=== PATIENT | female | born 1935 | race Two or more races ===

== ENCOUNTER 2017-12-12 17:55 | Emergency (ER) | payer MEDICARE, OTHER ==
[~2017-12-12] VITALS: Ht 152.4 cm; Wt 93.0 kg
[2017-12-12] MEDS ORDERED: TDAP [DIPH/PERTUSSIS/TET] 0.5 ML VIAL IM ONE ×2 (18:50→19:00)
[2017-12-12] MEDS ORDERED: ACETAMINOPHEN ES 500 MG TABLET ONE (18:50)
[2017-12-12] MEDS ORDERED: ACETAMINOPHEN ES 500 MG TABLET PO ONE (19:00)
--- NOTE | 2017-12-12 19:10 | NUR ---
RECIEVED REPORT FROM IV. PT JUST RETURNED FROM RADIOLOGY
--- NOTE | 2017-12-12 19:10 | NUR ---
MEGHANA at bedside w/Jose Guadalupe
--- NOTE | 2017-12-12 19:48 | NUR ---
PT RESTING COMFORTABLY IN BED. PT [id number]. PT PLACED ON MONITOR, VSS. FAMILY AT BEDSIDE
--- NOTE | 2017-12-12 20:45 | NUR ---
CALLED [facility] FOR REPORT
--- NOTE | 2017-12-12 20:58 | NUR ---
Patient discharged to home in stable condition. Written and verbal after care instructions given. Patient verbalizes understanding of instruction. Pt left with family members. Pt ambulatory with a steady gait
[2017-12-12 20:59] VITALS: BP 100/52
== END 2017-12-12 21:00 | disposition home or self-care (01) ==
LOC: ER 17:57
DX: S00.12XA Contusion of left eyelid and periocular area, initial encounter (principal); I10 Essential (primary) hypertension; E11.9 Type 2 diabetes mellitus without complications; E78.5 Hyperlipidemia, unspecified; Z88.0 Allergy status to penicillin; W01.198A Fall on same level from slipping, tripping and stumbling with subsequent striking against other object, initial encounter; Y93.01 Activity, walking, marching and hiking; Y92.89 Other specified places as the place of occurrence of the external cause; Y99.8 Other external cause status
CPT/HCPCS: 70450; 70486; 72125; 90471; 90715; 99284; A4606; A6402; Z7610